=== PATIENT | male | born 1985 | race Caucasian/White ===

== ENCOUNTER → 2021-04-18 09:02 | Outpatient (REF) | payer OTHER, SELFPAY | LOC: HO.SL 09:02 | PROVIDERS: PCP Physician Assistant; Visit Provider Physician Assistant | DX: G47.33 Obstructive sleep apnea (adult) (pediatric) (principal) | CPT/HCPCS: 95806 ==

== ENCOUNTER 2022-10-20 15:21 | Outpatient (AMB) | payer OTHER, SELFPAY ==
--- NOTE | 2022-10-20 15:32 | MHC.PC.OV ---
Vital Signs 10/20/22 15:33 Height 5 ft 11 in Weight 182 lb 8 oz BMI 25.5 BP 106/68 Blood Pressure Location Lt brachial Position Sitting Pulse 62 Pulse Source Pulse Oximeter Pulse Oximetry (%) 98 Oxygen Delivery Method Room Air Intake Visit Reasons: Ongoing back pain/ Left testicle pain Allergies No Known Allergies Allergy (Verified 10/20/22 16:12) Medication List - Last Reconciled 10/20/22 by Sam Nielsen PA-C tadalafil 20 mg PO DAILY 90 days Tobacco use date assessed: 10/20/22 HPI Ongoing back pain/ Left testicle pain HPI Details Patient is a 37-year-old male here today for problem visit. report having lower back pain over the last week. He reports a physically demanding job in [place] often lifting heavy things. He believes he may have pulled a muscle in his lower back. He reports the pain generally stays in his lower back on left-sided though sometimes radiates into his pelvic region. He has been using Advil though does not feel it is helpful. He denies any profound lower extremity weakness, bowel or bladder dysfunction or saddle amnesia. 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 1. Little interest or pleasure in doing things: not at all 2. Feeling down, depressed, or hopeless: not at all 3. Trouble falling or staying asleep, or sleeping too much: not at all 4. Feeling tired or having little energy: not at all 5. Poor appetite or overeating: not at all 6. Feeling bad about yourself - or that you are a failure or have let yourself or your family down: not at all 7. Trouble concentrating on things, such as reading the newspaper or watching television: not at all 8. Moving or speaking so slowly that other people could have noticed. Or the opposite - being so fidgety or restless that you have been moving around a lot more than usual: not at all 9. Thoughts that you would be better off or of hurting yourself in some way: not at all Total score: 0 Depression Screening Interpretation: Negative Source: Developed by Drs. Kirk Hammond, Jazmin Cespedes, Kwasi Shi and colleagues, with an educational alicia from [employer]. Thrive Questionnaire Date Thrive assessed: 11/20/21 AUDIT C Alcohol Use Questionnaire (AUDIT-C) 1. How often do you have a drink containing alcohol?: 2-3 times a week 2. How many drinks containing alcohol do you have on a typical day when you are drinking?: 3 or 4 3. How often do you have six or more drinks on one occasion?: Less than monthly Total Score: 5 DEDE-7 AMB Questionnaire DEDE-7 Date DEDE - 7 assessed: 10/20/22 Feeling nervous, anxious, or on edge: 0 = Not at all Not being able to stop or control worryin = Not at all Worrying too much about different things: 0 = Not at all Trouble relaxin = Not at all Being so restless that it is hard to sit still: 0 = Not at all Becoming easily annoyed or irritable: 0 = Not at all Feeling afraid as if something awful might happen: 0 = Not at all Total DEDE-7 score (0-4 normal; 5-9 mild; 10-14 moderate; 15-21 severe): 0 Source: Developed by Drs. Kirk Hammond, Jazmin Cespedes, Kwasi Shi and colleagues, with an educational alicia from [employer]. DEDE-7 Assessment Billing DEDE-7 Assessment Tool: DEDE-7 Assessment 04729 Review of Systems Const Denies headache(s) Eyes Denies loss of vision ENT Denies vertigo, Denies dizziness, Denies headache(s) and Denies sore throat Card Denies chest pain, Denies leg edema and Denies lightheadedness Resp Denies cough, Denies hemoptysis and Denies wheezing GI Denies abdominal pain, Denies melena, Denies constipation, Denies diarrhea and Denies vomiting Denies dysuria, Denies urinary frequency and Denies urinary urgency Musc Denies arthralgias, Denies joint swelling, Denies numbness and Denies tingling Neuro Denies Abnormal speech present, Denies behavioral changes, Denies vertigo, Denies dizziness, Denies headache(s), Denies loss of vision, Denies memory loss, Denies numbness and Denies tingling Psych Denies anxiety, Denies behavioral changes, Denies depression, Denies memory loss and Denies panic attacks Greg/Lymph Denies easy bleeding and Denies easy bruising Aller/Immun Denies wheezing Physical exam (Primary Care) Vital Signs: Last Vital Signs Pulse 62 10/20/22 15:33 BP 106/68 10/20/22 15:33 Pulse Ox 98 10/20/22 15:33 Oxygen Delivery Method Room Air 10/20/22 15:33 BMI result Body Mass Index 25.5 Tobacco/Smoking Status: Tobacco use Status Tobacco use date assessed 10/20/22 10/20/22 15:33 Patient Tobacco Use Status Never used Tobacco 10/20/22 15:33 Tobacco use type Cigarette 10/20/22 15:33 e-Cigarette/Vaping Use Never Used 10/20/22 15:33 PHQ-9: PHQ-9 Score PHQ-9: Total score 0 10/20/22 16:16 Depression Screening Interpretation: Negative Thrive Assessment: Date of Thrive Assessment Date Thrive assessed 11/20/21 10/20/22 15:33 Const General: healthy appearing, no acute distress, alert and awake Nutritional Appearance: well nourished Orientation/consciousness: oriented to person, oriented to place and oriented to time HENMT Ears: TM's normal bilaterally General nose exam: Normal nasal mucous membranes and turbinates present Eyes Conjunctivae: conjunctivae normal Sclerae: sclerae normal Pupils: Equal, round and reactive pupils present Neck Neck: Yes no lymphadenopathy and Yes no JVD Thyroid: Thyroid normal Carotids: no bruits Resp Effort & Inspection: normal respiratory effort and not tachypneic Auscultation: no crackles, no rales, no rhonchi and no wheezes Cardio Rate: regular rate Rhythm: regular rhythm Heart sounds: no murmurs and normal S1 and S2 GI Palpation (GI): Soft to palpation, nontender, no hepatomegaly and no splenomegaly Auscultation: normal bowel sounds Back/Spine/Pelvis Other: POSITIVE PAIN WITH STRAIGHT LEG RAISE ON LEFT SIDE PATIENT AMBULATING WITH AN ANTALGIC GAIT Skin General skin exam: no rashes or lesions noted and dry skin Neuro General: oriented to person, oriented to place and oriented to time Cranial nerves: Yes Equal, round and reactive pupils present Speech: No Abnormal speech present Gait exam (Neuro): Normal gait present Motor exam (neuro): no tremor noted Extrem Right upper extremity: full ROM Left upper extremity: full ROM Right lower extremity: full ROM; no edema Left lower extremity: full ROM; no edema Psych Mental Status: mental status grossly normal Speech and movement: Normal speech and movement present Affect: normal affect Attitude: cooperative Thought process: Normal thought process present Assessment and Plan Assessment & Plan (1) Lower back pain: Code(s): M54.50 - Low back pain, unspecified Qualifiers: Back pain laterality: bilateral Chronicity: acute Sciatica presence: without sciatica Qualified Code(s): M54.50 - Low back pain, unspecified Plan: Patient's signs and symptoms most consistent with sciatic on left side verses lumbosacral sprain. Advised to rest lower back, will get x-ray to evaluate for any disc height loss versus arthritis. Will supply patient with prednisone taper for inflammation around the sciatic nerve. Advised on formal physical therapy and patient agrees and will try. Orders: Orders XR lumbar spine 2-3V Today M54.50 - Low back pain, unspecified PT Evaluation and Treatment 10/20/22 M51.9 - Unspecified thoracic, thoracolumbar and lumbosacral intervertebral disc disorder, M54.50 - Low back pain, unspecified Comprehensive [place]. Panel Fast 10/20/22 Z13.1 - Encounter for screening for diabetes mellitus Medications: New prednisone 10 mg PO DAILY 7 days 15 tabs 0RF M54.50 - Low back pain, unspecified Refilled tadalafil administer approximately 30min before sexual activity; do not use more than 1 dose per 24hrs 20 mg PO DAILY 90 days 20 tabs 0RF sexual activity N52.8 - Other male erectile dysfunction Coding Level of Care Code Est Pt Level 3 (99719) Diagnoses Lower back pain M54.50 Back pain laterality: bilateral Chronicity: acute Sciatica presence: without sciatica Additional Codes DEDE-7 Assessment Billing - DEDE-7 Assessment Tool: DEDE-7 Assessment 35014 ([id number])
[2022-10-20 15:33] VITALS: BP 106/68; PULSE 62; O2SAT 98; BMI 25.5
== END 2022-10-20 16:27 | disposition home or self-care (01) ==
PROVIDERS: PCP Physician Assistant; Visit Provider Physician Assistant
DX: M54.50 Low back pain, unspecified (principal)
CPT/HCPCS: 99213

== ENCOUNTER 2022-10-21 07:15 | Outpatient (REF) | payer OTHER, SELFPAY ==
--- NOTE | ~2022-10-21 | XR_ITS ---
EXAMINATION: XR LUMBOSACRAL SPINE CLINICAL INFORMATION: Low back pain COMPARISON: None available. TECHNIQUE: Three views of the lumbosacral spine. FINDINGS: The vertebral bodies and posterior elements are normal. The disc spaces are preserved and the vertebral alignment is normal. The paraspinal soft tissues are normal. XR/XR lumbar spine 2-3V IMPRESSION: Unremarkable examination.
== END 2022-10-21 07:16 | disposition home or self-care (01) ==
LOC: HO.XRAY 07:15
PROVIDERS: PCP Physician Assistant; Visit Provider Physician Assistant
DX: M54.50 Low back pain, unspecified (principal)
CPT/HCPCS: 72100

== ENCOUNTER 2022-11-24 07:53 | Outpatient (AMB) | payer OTHER, SELFPAY ==
[2022-11-24 08:01] VITALS: BP 116/68; PULSE 78; O2SAT 98; BMI 25.9
--- NOTE | 2022-11-24 08:01 | MHC.PC.OV ---
Vital Signs 11/24/22 08:01 Height 5 ft 11 in Weight 186 lb BMI 25.9 BP 116/68 Blood Pressure Location Lt brachial Position Sitting Pulse 78 Pulse Source Pulse Oximeter Pulse Oximetry (%) 98 Oxygen Delivery Method Room Air Intake Visit Reasons: PE Allergies No Known Allergies Allergy (Verified 11/24/22 08:10) Medication List - Last Reconciled 11/24/22 by Sam Nielsen PA-C tadalafil 20 mg PO DAILY 90 days Tobacco use date assessed: 10/20/22 Dental Screening Dental Screen Date: 11/24/22 Did you have a dental visit in the last 12 months?: No Did you have a dental problem in the last 6 months where you did not have access to dental care?: No Was dental information given to patient?: Patient has dentist HPI PE HPI Details Patient is a 37 year male here today for annual physical. Patient has a past medical history significant for mild obstructive sleep apnea, erectile dysfunction. Concern--> recently had a lower back issue to which has gotten better though seems to be intermittent in pain severity. 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 He was referred to physical therapy though is cancel the appointment as he was feeling better. .. Sleeping issue: Has tried hydroxyzine in the past though had morning lethargy. He is willing to try another .Sleeping medication. .. Erectile dysfunction: He does use today Elavil on a p.r.n. basis with good effect. Vaccines: UTD COVID Vaccine , Needs Tdap, considering flu vaccine [facility] Medical History (Updated 11/24/22 @ 08:43 by Sam Nielsen PA-C) Right malleolar fracture OJ (obstructive sleep apnea) Surgical History History of removal of cyst History of foot surgery History of appendectomy Family History Father Alive and well Mother Alive and well Son Alive and well Daughter Alive and well Social History (Updated 11/24/22 @ 08:18 by Sam Nielsen PA-C) Housing: House Alcohol intake: current Alcohol intake frequency: a few times a month Alcohol type: beer Patient Tobacco Use Status: Never used Tobacco Tobacco use type: Cigarette e-Cigarette/Vaping Use: Never Used Second Hand Smoke Exposure: No Substance Use Type: Marijuana Current occupational status: employed 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 1. Little interest or pleasure in doing things: not at all 2. Feeling down, depressed, or hopeless: not at all 3. Trouble falling or staying asleep, or sleeping too much: not at all 4. Feeling tired or having little energy: not at all 5. Poor appetite or overeating: not at all 6. Feeling bad about yourself - or that you are a failure or have let yourself or your family down: not at all 7. Trouble concentrating on things, such as reading the newspaper or watching television: not at all 8. Moving or speaking so slowly that other people could have noticed. Or the opposite - being so fidgety or restless that you have been moving around a lot more than usual: not at all 9. Thoughts that you would be better off or of hurting yourself in some way: not at all Total score: 0 Depression Screening Interpretation: Negative Source: Developed by Drs. Kirk Hammond, Jazmin Cespedes, Kwasi Shi and colleagues, with an educational alicia from [employer]. Thrive Questionnaire Date Thrive assessed: 11/24/22 I am a: Patient What is your living situation today?: I have a steady place to live Within the past 12 months, did the food you bought not last and you didn't have the money to get more?: Never true Within the past 12 months, did you worry whether your food would run out before you got money to buy more?: Never true Do you have trouble paying for medicines?: No Do you have trouble getting transportation to medical appointments?: No Do you have trouble paying your heating and electricity bill?: No Do you have trouble taking care of your child, family member or friend?: No Do you have trouble with day-to-day activities such as bathing, preparing meals, shopping, managing finances, etc.?: No Are you currently unemployed and looking for a job?: No Are you interested in more education?: No Currently or been in a relationship where the following occur: no concerns reported AUDIT C Alcohol Use Questionnaire (AUDIT-C) 1. How often do you have a drink containing alcohol?: 2-3 times a week 2. How many drinks containing alcohol do you have on a typical day when you are drinking?: 3 or 4 3. How often do you have six or more drinks on one occasion?: Less than monthly Total Score: 5 DEDE-7 AMB Questionnaire DEDE-7 Date DEDE - 7 assessed: 10/20/22 Source: Developed by Drs. Kirk Hammond, Jazmin Cespedes, Kwasi Shi and colleagues, with an educational alicia from [employer]. Review of Systems Const Denies body aches, Denies chills, Denies excessive sweating, Denies fatigue, Denies fever(s) and Denies headache(s) Eyes Denies blurry vision ENT Denies dysphagia, Denies vertigo, Denies dizziness, Denies headache(s), Denies hearing loss and Denies tinnitus Card Denies chest pain, Denies chest pain with activity, Denies syncope, Denies irregular heart rhythm and Denies dyspnea Resp Denies chest congestion, Denies cough, Denies hemoptysis, Denies dyspnea and Denies wheezing GI Denies abdominal pain, Denies melena, Denies hematochezia, Denies coffee ground emesis, Denies dysphagia, Denies diarrhea, Denies nausea and Denies vomiting Denies difficulty urinating, Denies dysuria, Denies urinary frequency, Denies urinary hesitancy and Denies urinary urgency Musc Denies arthralgias, Denies limited range of motion, Denies muscle cramps and Denies muscle weakness Skin/Breast Denies rash and Denies skin ulcer Neuro Denies Abnormal speech present, Denies confusion, Denies vertigo, Denies dizziness, Denies syncope, Denies headache(s), Denies memory loss and Denies seizure-like activity Psych Denies anxiety, Denies confusion, Denies depression, Denies memory loss, Denies panic attacks and Denies paranoia Endo Denies excessive sweating, Denies fatigue, Denies flushing, Denies polydipsia and Denies polyuria Aller/Immun Denies wheezing Physical exam (Primary Care) Vital Signs: Last Vital Signs Pulse 78 11/24/22 08:01 BP 116/68 11/24/22 08:01 Pulse Ox 98 11/24/22 08:01 Oxygen Delivery Method Room Air 11/24/22 08:01 BMI result Body Mass Index 25.9 Tobacco/Smoking Status: Tobacco use Status Tobacco use date assessed 10/20/22 11/24/22 08:06 Patient Tobacco Use Status Never used Tobacco 11/24/22 08:06 Tobacco use type Cigarette 11/24/22 08:06 e-Cigarette/Vaping Use Never Used 11/24/22 08:06 PHQ-9: PHQ-9 Score PHQ-9: Total score 0 11/24/22 08:06 Depression Screening Interpretation: Negative Thrive Assessment: Date of Thrive Assessment Date Thrive assessed 11/24/22 11/24/22 08:06 Currently or been in a relationship where the following occur: no concerns reported Const General: cooperative, comfortable, no acute distress, alert and awake; No confusion Orientation/consciousness: oriented to person, oriented to place, patient oriented x3 and No confusion HENMT Head: Yes normocephalic Ears: external ears normal and TM's normal bilaterally Face and sinus: No sinus tenderness Mouth: Normal oral and palatal mucosa present and tongue normal Teeth and gingiva: dentition normal and gingiva normal Throat: Yes posterior oropharynx normal, Yes tonsils normal and Yes uvula midline Eyes Conjunctivae: conjunctivae normal Sclerae: sclerae normal Pupils: Equal, round and reactive pupils present EOM: EOMs intact bilaterally Direct Ophthalmoscopy: No no photophobia Neck Neck: Yes no lymphadenopathy, No tender and Yes no JVD Thyroid: Thyroid normal Carotids: no bruits Chest Chest palpation & inspection: no tenderness Resp Effort & Inspection: normal respiratory effort, no audible wheezes, not labored and no stridor Auscultation: no crackles, no rales, no rhonchi and no wheezes Cardio Jugular venous distension: no JVD Rate: regular rate, not bradycardic and not tachycardic Rhythm: regular rhythm Bruits: no carotid bruits Peripheral pulses: Peripheral pulses 2+ throughout GI Inspection: Yes normal to inspection, No abdominal wall ecchymosis and No visible herniation Palpation (GI): Soft to palpation, nontender, no guarding, not rigid and No hepatosplenomegaly present Auscultation: normoactive bowel sounds General: Yes no CVA tenderness Back/Spine/Pelvis Back: no CVA tenderness and No back tenderness Cervical Spine: cervical ROM normal Thoracic/Lumbar Spine: thoracic and lumbar spine normal to inspection, straight leg raise negative bilaterally, No thoraco-lumbar ROM limited and No lumbar spinal tenderness Skin Lesions: no lesions Rashes: no rashes Wounds: no wounds Neuro General: oriented to person, oriented to place, patient oriented x3, CN's II-XI intact bilaterally and No confusion Cranial nerves: Yes Equal, round and reactive pupils present and Yes Normal accommodation reflex present Cognition (Neuro): normal cognition Speech: No Abnormal speech present Gait exam (Neuro): Normal gait present Motor exam (neuro): 5/5 motor strength present throughout Extrem Right upper extremity: full ROM; no cyanosis Left upper extremity: full ROM; no cyanosis Right lower extremity: no edema Left lower extremity: no edema Psych Appearance: grossly normal Mental Status: mental status grossly normal Affect: normal affect Attitude: cooperative Thought process: Normal thought process present Assessment and Plan Assessment & Plan (1) Annual physical exam: Code(s): Z00.00 - Encounter for general adult medical examination without abnormal findings (2) Erectile dysfunction: Code(s): N52.9 - Male erectile dysfunction, unspecified Qualifiers: Erectile dysfunction type: due to other cause Qualified Code(s): N52.8 - Other male erectile dysfunction Plan: Uses today Elavil on a p.r.n. basis with good effect. (3) Screening for diabetes mellitus (DM): Code(s): Z13.1 - Encounter for screening for diabetes mellitus (4) Insomnia: Code(s): G47.00 - Insomnia, unspecified Qualifiers: Insomnia type: primary Qualified Code(s): F51.01 - Primary insomnia Plan: Continues to have trouble getting and staying asleep. Was sent for sleep study though did not have any severe obstructive sleep apnea. Did have mild apnea which recommendations made to sleep in more upright position. Medications: New doxepin 6 mg PO BEDTIME 15 tabs 1RF 15 days F51.01 - Primary insomnia Refilled tadalafil administer approximately 30min before sexual activity; do not use more than 1 dose per 24hrs 20 mg PO DAILY 20 tabs 0RF sexual activity 90 days N52.8 - Other male erectile dysfunction Coding Level of Care Code Est Pt Prev Care 18-39y([id number]) Diagnoses Annual physical exam Z00.00 Other male erectile dysfunction N52.8 Erectile dysfunction type: due to other cause Screening for diabetes mellitus (DM) Z13.1 Primary insomnia F51.01 Insomnia type: primary
== END 2022-11-24 08:32 | disposition home or self-care (01) ==
PROVIDERS: PCP Physician Assistant; Visit Provider Physician Assistant
DX: Z00.00 Encounter for general adult medical examination without abnormal findings (principal); N52.8 Other male erectile dysfunction; Z13.1 Encounter for screening for diabetes mellitus; F51.01 Primary insomnia
CPT/HCPCS: 99395

== ENCOUNTER 2023-06-08 13:52 | Outpatient (AMB) | payer OTHER, SELFPAY ==
--- NOTE | 2023-06-08 13:53 | A.OFFPC_ITS ---
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 Accompanied by: Self / Same As Patient Allergies No Known Allergies Allergy (Verified 06/08/23 14:03) Medication List - Last Reconciled 06/08/23 by Sam Nielsen PA-C tadalafil 20 mg PO DAILY 90 days trazodone 25 mg (1/2 x 50 mg) PO DAILY 30 days Tobacco use date assessed: 06/08/23 Dental Screening Dental Screen Date: 06/08/23 Did you have a dental visit in the last 12 months?: No Did you have a dental problem in the last 6 months where you did not have access to dental care?: No Was dental information given to patient?: Patient has dentist HPI Possible sinus infection HPI Details Patient is a 37-year-old male here today for sick visit. He has been suffering with sinus pain and nasal congestion over the last 2 weeks. He does report seeing urgent care and was placed on amoxicillin and felt a bit better for few days though symptoms of cough, malaise have returned. He has been using [id number] cough cold medications though have not effective. [facility] Medical History Right malleolar fracture OJ (obstructive sleep apnea) Surgical History History of removal of cyst History of foot surgery History of appendectomy Family History Father Alive and well Mother Alive and well Son Alive and well Daughter Alive and well Social History Housing: House Alcohol intake: current Alcohol intake frequency: a few times a month Alcohol type: beer Patient Tobacco Use Status: Never used Tobacco Tobacco use type: Cigarette e-Cigarette/Vaping Use: Never Used Second Hand Smoke Exposure: No Substance Use Type: Marijuana Current occupational status: employed 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 1. Little interest or pleasure in doing things: not at all 2. Feeling down, depressed, or hopeless: not at all 3. Trouble falling or staying asleep, or sleeping too much: not at all 4. Feeling tired or having little energy: not at all 5. Poor appetite or overeating: not at all 6. Feeling bad about yourself - or that you are a failure or have let yourself or your family down: not at all 7. Trouble concentrating on things, such as reading the newspaper or watching television: not at all 8. Moving or speaking so slowly that other people could have noticed. Or the opposite - being so fidgety or restless that you have been moving around a lot more than usual: not at all 9. Thoughts that you would be better off or of hurting yourself in some way: not at all Total score: 0 Depression Screening Interpretation: Negative Depression Screening Done: Yes 69641 - PHQ-9 Billing: Yes Source: Developed by Drs. Kirk Hammond, Jazmin Cespedes, Kwasi Shi and colleagues, with an educational alicia from [employer] Thrive Questionnaire Date Thrive assessed: 06/08/23 I am a: Patient What is your living situation today?: I have a steady place to live Within the past 12 months, did the food you bought not last and you didn't have the money to get more?: Never true Within the past 12 months, did you worry whether your food would run out before you got money to buy more?: Never true Do you have trouble paying for medicines?: No Do you have trouble getting transportation to medical appointments?: No Do you have trouble paying your heating and electricity bill?: No Do you have trouble taking care of your child, family member or friend?: No Do you have trouble with day-to-day activities such as bathing, preparing meals, shopping, managing finances, etc.?: No Are you currently unemployed and looking for a job?: No Please select the resources that you would like help with: None Currently or been in a relationship where the following occur: no concerns reported THRIVE Score: 0 AUDIT C Alcohol Use Questionnaire (AUDIT-C) 1. How often do you have a drink containing alcohol?: 2-3 times a week 2. How many drinks containing alcohol do you have on a typical day when you are drinking?: 3 or 4 3. How often do you have six or more drinks on one occasion?: Less than monthly Total Score: 5 DEDE-7 AMB Questionnaire DEDE-7 Date DEDE - 7 assessed: 06/08/23 Feeling nervous, anxious, or on edge: 0 = Not at all Not being able to stop or control worryin = Not at all Worrying too much about different things: 0 = Not at all Trouble relaxin = Not at all Being so restless that it is hard to sit still: 0 = Not at all Becoming easily annoyed or irritable: 0 = Not at all Feeling afraid as if something awful might happen: 0 = Not at all Total DEDE-7 score (0-4 normal; 5-9 mild; 10-14 moderate; 15-21 severe): 0 Source: Developed by Drs. Kirk Hammond, Jazmin Cespedes, Kwasi Shi and colleagues, with an educational alicia from [employer] DEDE-7 Assessment Billing DEDE-7 Assessment Tool: DEDE-7 Assessment 78181 Review of Systems Const Reports headache(s) Eyes Denies loss of vision ENT Denies vertigo, Denies dizziness, Reports headache(s), Reports nasal congestion, Reports sinus pain and Denies sore throat Card Denies chest pain, Denies leg edema and Denies lightheadedness Resp Reports cough, Denies hemoptysis and Denies wheezing GI Denies abdominal pain, Denies melena, Denies constipation, Denies diarrhea and Denies vomiting Denies dysuria, Denies urinary frequency and Denies urinary urgency Musc Denies arthralgias, Denies joint swelling, Denies numbness and Denies tingling Neuro Denies Abnormal speech present, Denies behavioral changes, Denies vertigo, Denies dizziness, Reports headache(s), Denies loss of vision, Denies memory loss, Denies numbness and Denies tingling Psych Denies anxiety, Denies behavioral changes, Denies depression, Denies memory loss and Denies panic attacks Greg/Lymph Denies easy bleeding and Denies easy bruising Aller/Immun Denies wheezing Physical exam (Primary Care) Vital Signs: Last Vital Signs Pulse 69 06/08/23 13:56 Resp 16 06/08/23 13:56 BP 110/60 06/08/23 13:56 Pulse Ox 97 06/08/23 13:56 Oxygen Delivery Method Room Air 06/08/23 13:56 BMI result Body Mass Index 25.9 Tobacco/Smoking Status: Tobacco use Status Tobacco use date assessed 06/08/23 06/08/23 14:00 Patient Tobacco Use Status Never used Tobacco 06/08/23 13:54 Tobacco use type Cigarette 06/08/23 13:54 e-Cigarette/Vaping Use Never Used 06/08/23 13:54 PHQ-9: PHQ-9 Score PHQ-9: Total score 0 06/08/23 14:00 Depression Screening Interpretation: Negative Thrive Assessment: Date of Thrive Assessment Date Thrive assessed 06/08/23 06/08/23 14:00 Currently or been in a relationship where the following occur: no concerns reported Const General: healthy appearing, no acute distress, alert and awake Nutritional Appearance: well nourished Orientation/consciousness: oriented to person, oriented to place and oriented to time HENMT Ears: TM's normal bilaterally General nose exam: Normal nasal mucous membranes and turbinates present Eyes Conjunctivae: conjunctivae normal Sclerae: sclerae normal Pupils: Equal, round and reactive pupils present Neck Neck: Yes no lymphadenopathy and Yes no JVD Thyroid: Thyroid normal Carotids: no bruits Resp Effort & Inspection: normal respiratory effort and not tachypneic Auscultation: no crackles, no rales, no rhonchi and no wheezes Cardio Rate: regular rate Rhythm: regular rhythm Heart sounds: no murmurs and normal S1 and S2 GI Palpation (GI): Soft to palpation, nontender, no hepatomegaly and no splenomegaly Auscultation: normal bowel sounds Skin General skin exam: no rashes or lesions noted and dry skin Neuro General: oriented to person, oriented to place and oriented to time Cranial nerves: Yes Equal, round and reactive pupils present Speech: No Abnormal speech present Gait exam (Neuro): Normal gait present Motor exam (neuro): no tremor noted Extrem Right upper extremity: full ROM Left upper extremity: full ROM Right lower extremity: full ROM; no edema Left lower extremity: full ROM; no edema Psych Mental Status: mental status grossly normal Speech and movement: Normal speech and movement present Affect: normal affect Attitude: cooperative Thought process: Normal thought process present Assessment and Plan Assessment & Plan (1) URI (upper respiratory infection): Code(s): J06.9 - Acute upper respiratory infection, unspecified Qualifiers: URI type: unspecified viral URI Qualified Code(s): J06.9 - Acute upper respiratory infection, unspecified Plan: Patients signs symptoms most consistent with an upper respiratory illness likely viral. Has finished a course of amoxicillin when and felt better temporarily though symptoms has returned. Will send for x-ray and blood work. Will supply patient with doxycycline and prednisone Orders: Orders SARS-CoV2/FLU/RSV Today J06.9 - Acute upper respiratory infection, unspecified Complete Blood Count no Diff Today J06.9 - Acute upper respiratory infection, unspecified Basic Metabolic Panel Today J06.9 - Acute upper respiratory infection, unspecified XR chest 2V Today J06.9 - Acute upper respiratory infection, unspecified Medications: New doxycycline monohydrate 150 mg PO BID 7 days 14 caps 0RF J06.9 - Acute upper respiratory infection, unspecified prednisone 20 mg PO DAILY 5 days 5 tabs 0RF J06.9 - Acute upper respiratory infection, unspecified Coding Level of Care Code Est Pt Level 3 (53608) Diagnoses Viral upper respiratory tract infection J06.9 URI type: unspecified viral URI Additional Codes DEDE-7 Assessment Billing - DEDE-7 Assessment Tool: DEDE-7 Assessment [id number] ([id number])
[2023-06-08 13:56] VITALS: BP 110/60; PULSE 69; RESP 16; O2SAT 97; BMI 25.9
== END 2023-06-08 14:19 | disposition home or self-care (01) ==
PROVIDERS: PCP Physician Assistant; Visit Provider Physician Assistant
DX: J06.9 Acute upper respiratory infection, unspecified (principal)
CPT/HCPCS: 99213

== ENCOUNTER 2023-06-08 14:21 | Outpatient (REF) | payer OTHER, SELFPAY ==
--- NOTE | ~2023-06-08 | XR_ITS ---
EXAMINATION: XR CHEST CLINICAL INFORMATION: Acute upper respiratory infection COMPARISON: 12/08/2016 TECHNIQUE: 2 views of the chest were obtained. FINDINGS: No significant abnormality is noted involving the heart, lungs, mediastinum, bony thorax or soft tissues. XR/XR chest 2V IMPRESSION: Unremarkable examination with no interval change.
[2023-06-08 15:07] LABS: Hematocrit 41.5 % (42.0-52.0); Mean Corpuscular HGB Conc 33.7 g/dl (31.0-36.0); Mean Corpuscular Hemoglobin 28.9 pg (27.0-33.0); Mean Corpuscular Volume 85.6 fL (80.0-98.0); Mean Platelet Volume 8.9 fL (9.4-12.4); Platelet Count 334 X10*3/uL (160-400); Red Blood Count 4.85 X10*6/uL (4.60-5.80); Red Cell Distribution Width 12.9 % (11.0-16.0); White Blood Count 11.5 X10*3/uL (4.8-10.8)
[2023-06-08 15:28] LABS: Alanine Aminotransferase 16 U/L (0-40); Albumin Level 4.1 g/dL (3.5-5.0); Alkaline Phosphatase 67 U/L (39-117); Anion Gap 9 (12-20); Aspartate Amino Transferase 17 U/L (5-37); Bilirubin Total 0.2 mg/dL (0.0-1.0); Blood Urea Nitrogen 8 mg/dL (9-16); Calcium 9.5 mg/dL (8.4-10.2); Carbon Dioxide 27 mmol/L (22-29); Chloride 108 mmol/L (96-108); Estimated Glomerular Filt Rate > 60; Glucose Fasting 89 mg/dL (60-99); Glucose Random 90 mg/dL (60-115); Potassium 4.2 mmol/L (3.3-5.1); Sodium 140 mmol/L (135-145)
== END 2023-06-08 14:22 | disposition home or self-care (01) ==
LOC: HO.XRAY 14:21
PROVIDERS: PCP Physician Assistant; Visit Provider Physician Assistant
DX: Z13.1 Encounter for screening for diabetes mellitus (principal); J06.9 Acute upper respiratory infection, unspecified
CPT/HCPCS: 36415; 71046; 80048; 80053; 85027

== ENCOUNTER 2023-06-08 16:23 | Outpatient (REF) | payer OTHER, SELFPAY ==
[2023-06-08 17:46] LABS: Influenza A PCR NEGATIVE (Negative); Influenza B PCR NEGATIVE (Negative); Resp Syncy Virus RNA Qual PCR NEGATIVE (Negative); SARS COV2 PCR INHOUSE NEGATIVE (Negative)
== END 2023-06-08 16:24 | disposition home or self-care (01) ==
LOC: HO.LNP 16:23
PROVIDERS: Visit Provider Physician Assistant
DX: Z11.52 Encounter for screening for COVID-19 (principal); J06.9 Acute upper respiratory infection, unspecified
CPT/HCPCS: 0241U

== ENCOUNTER 2023-10-01 09:14 | Outpatient (AMB) | payer BC, SELFPAY ==
--- NOTE | 2023-10-01 09:15 | MHC.PC.OV ---
Intake Visit Reasons: ?Sinus infection Director Labor Standards Required: No Information Interpreted: non-clinical & clinical [place] Carpenter: Not Required per policy Accompanied by: Self / Same As Patient Allergies No Known Allergies Allergy (Verified 10/01/23 09:15) Tobacco use date assessed: 06/08/23 Dental Screening Dental Screen Date: 06/08/23 HPI ?Sinus infection HPI Details Patient is a 38-year-old male being evaluated today via telephone. He reports over the last 3 days feeling sinus/nasal congestion, frontal headache, myalgias and fatigue. Did take COVID testing was negative. He reports feeling like this when he has a sinus infection. Otherwise denies any sick contacts. [facility] Medical History Right malleolar fracture OJ (obstructive sleep apnea) Surgical History History of removal of cyst History of foot surgery History of appendectomy Family History Father Alive and well Mother Alive and well Son Alive and well Daughter Alive and well Social History Housing: House Alcohol intake: current Alcohol intake frequency: a few times a month Alcohol type: beer Patient Tobacco Use Status: Never used Tobacco Tobacco use type: Cigarette e-Cigarette/Vaping Use: Never Used Second Hand Smoke Exposure: No Substance Use Type: Marijuana Current occupational status: employed 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 Kirk Hammond, Jazmin Cespedes, Kwasi Shi and colleagues, with an educational alicia from [employer]. Review of Systems Const Reports body aches, Reports chills, Reports fatigue and Reports headache(s) Eyes Denies loss of vision ENT Denies vertigo, Denies dizziness, Reports headache(s), Reports nose pain, Reports sinus pain and Denies sore throat Card Denies chest pain, Denies leg edema and Denies lightheadedness Resp Denies cough, Denies hemoptysis and Denies wheezing GI Denies abdominal pain, Denies melena, Denies constipation, Denies diarrhea and Denies vomiting Denies dysuria, Denies urinary frequency and Denies urinary urgency Musc Denies arthralgias, Denies joint swelling, Denies numbness and Denies tingling Neuro Denies behavioral changes, Denies vertigo, Denies dizziness, Reports headache(s), Denies loss of vision, Denies memory loss, Denies numbness and Denies tingling Psych Denies anxiety, Denies behavioral changes, Denies depression, Denies memory loss and Denies panic attacks Endo Reports fatigue Greg/Lymph Denies easy bleeding and Denies easy bruising Aller/Immun Denies wheezing Physical exam (Primary Care) Tobacco/Smoking Status: Tobacco use Status Tobacco use date assessed 06/08/23 10/01/23 09:16 Patient Tobacco Use Status Never used Tobacco 10/01/23 09:16 Tobacco use type Cigarette 10/01/23 09:16 e-Cigarette/Vaping Use Never Used 10/01/23 09:16 Thrive Assessment: Date of Thrive Assessment Date Thrive assessed 06/08/23 10/01/23 09:16 Telehealth Telehealth Telehealth Platform: Telephone Location of provider rendering services: practice address Location of patient: address on file Patient Identification confirmed using: Name, : Yes Telehealth method: voice only Patient verbally consented to treatment: Yes Patient verbally consented to billing insurance company: Yes Patient informed of any privacy concerns related to visit: Yes Minutes spent on Phone/Video with Pt.: 11 Assessment and Plan Assessment & Plan (1) Sinus infection: Code(s): J32.9 - Chronic sinusitis, unspecified Qualifiers: Sinusitis location: frontal Chronicity: acute Recurrence: non-recurrent Qualified Code(s): J01.10 - Acute frontal sinusitis, unspecified Plan: Patient's signs symptoms most consistent with a frontal sinus infection. Will supply patient with antibiotic prophylactic against bacterial infection. Advised on conservative management such as increasing fluids, use of Tylenol rest. Medications: New amoxicillin-pot clavulanate 875-125 mg 1 tab PO BID 7 days 14 tabs 0RF J01.10 - Acute frontal sinusitis, unspecified Coding Level of Care Code Tele Est Pt Level 3 (59592) Diagnoses Acute non-recurrent frontal sinusitis J01.10 Sinusitis location: frontal Chronicity: acute Recurrence: non-recurrent
== END 2023-10-01 12:52 | disposition home or self-care (01) ==
PROVIDERS: PCP Physician Assistant; Visit Provider Physician Assistant
DX: J01.10 Acute frontal sinusitis, unspecified (principal)
CPT/HCPCS: 99442

== ENCOUNTER 2024-04-18 14:22 | Outpatient (AMB) | payer BC, SELFPAY ==
[2024-04-18 14:48] VITALS: BP 116/76; PULSE 67; TEMP 36.2; O2SAT 99; BMI 26.1
--- NOTE | 2024-04-18 14:48 | MHC.PC.OV ---
Vital Signs 04/18/24 14:48 Height 5 ft 11 in Weight 187 lb 4 oz BMI 26.1 BP 116/76 Blood Pressure Location Lt brachial Position Sitting Pulse 67 Pulse Source Pulse Oximeter Temp 97.1 F Temp Source Temporal Artery Scan Pulse Oximetry (%) 99 Oxygen Delivery Method Room Air Intake Visit Reasons: R/S from 03/10/24- Supervisor Home Economics Required: No Accompanied by: Self / Same As Patient Allergies No Known Allergies Allergy (Verified 04/18/24 15:23) Medication List - Last Reconciled 04/18/24 by Sam Nielsen PA-C cetirizine 10 mg PO DAILY fluticasone propionate 50 mcg/actuation 2 sprays intranasal DAILY tadalafil 20 mg PO DAILY 90 days trazodone 25 mg (1/2 x 50 mg) PO DAILY 30 days Tobacco use date assessed: 04/18/24 Dental Screening Dental Screen Date: 04/18/24 Did you have a dental visit in the last 12 months?: Yes Did you have a dental problem in the last 6 months where you did not have access to dental care?: No Was dental information given to patient?: Patient has dentist HPI R/S from 03/10/24- HPI Details Patient is a 38 year male here today for annual physical. Patient has a past medical history significant for mild obstructive sleep apnea, erectile dysfunction. Concern--> reports having GERD symptoms has been chronic issue over the last few years. Uses Rolaids and Tums on a daily basis. He does report feeling some of his solid foods get stuck in his esophagus at times. PLAN: Will modify diet and start pantoprazole to help with reducing acid production. .. Sleeping issue: He does have trazodone available to him and reports he has been sleeping much better recently. .. Erectile dysfunction: He does use today Elavil on a p.r.n. basis with good effect. Vaccines: UTD COVID Vaccine , Needs Tdap, PFSH Medical History Right malleolar fracture OJ (obstructive sleep apnea) Surgical History History of removal of cyst History of foot surgery History of appendectomy Family History Father Alive and well Mother Alive and well Son Alive and well Daughter Alive and well Social History Housing: House Alcohol intake: current Alcohol intake frequency: a few times a month Alcohol type: beer Patient Tobacco Use Status: Never used Tobacco Tobacco use type: Cigarette e-Cigarette/Vaping Use: Never Used Second Hand Smoke Exposure: No Substance Use Type: Marijuana service: No Current occupational status: employed 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 1. Little interest or pleasure in doing things: not at all 2. Feeling down, depressed, or hopeless: not at all 3. Trouble falling or staying asleep, or sleeping too much: not at all 4. Feeling tired or having little energy: not at all 5. Poor appetite or overeating: not at all 6. Feeling bad about yourself - or that you are a failure or have let yourself or your family down: not at all 7. Trouble concentrating on things, such as reading the newspaper or watching television: not at all 8. Moving or speaking so slowly that other people could have noticed. Or the opposite - being so fidgety or restless that you have been moving around a lot more than usual: not at all 9. Thoughts that you would be better off or of hurting yourself in some way: not at all Total score: 0 Depression Screening Interpretation: Negative Depression Screening Done: Yes 85063 - PHQ-9 Billing: Yes Source: Developed by Drs. Kirk Hammond, Jazmin Cespedes, Kwasi Shi and colleagues, with an educational alicia from [employer]. Thrive Questionnaire Date Thrive assessed: 04/18/24 I am a: Patient What is your living situation today?: I have a steady place to live Within the past 12 months, did the food you bought not last and you didn't have the money to get more?: Never true Within the past 12 months, did you worry whether your food would run out before you got money to buy more?: Never true Do you have trouble paying for medicines?: No Do you have trouble getting transportation to medical appointments?: No Do you have trouble paying your heating and electricity bill?: No Do you have trouble taking care of your child, family member or friend?: No Do you have trouble with day-to-day activities such as bathing, preparing meals, shopping, managing finances, etc.?: No Are you currently unemployed and looking for a job?: No Are you interested in more education?: No Please select the resources that you would like help with: None Currently or been in a relationship where the following occur: No concerns reported THRIVE Score: 0 AUDIT C Alcohol Use Questionnaire (AUDIT-C) 1. How often do you have a drink containing alcohol?: 2-3 times a week 2. How many drinks containing alcohol do you have on a typical day when you are drinking?: 3 or 4 3. How often do you have six or more drinks on one occasion?: Less than monthly Total Score: 5 DEDE-7 AMB Questionnaire DEDE-7 Date DEDE - 7 assessed: 04/18/24 Feeling nervous, anxious, or on edge: 0 = Not at all Not being able to stop or control worryin = Not at all Worrying too much about different things: 0 = Not at all Trouble relaxin = Not at all Being so restless that it is hard to sit still: 0 = Not at all Becoming easily annoyed or irritable: 0 = Not at all Feeling afraid as if something awful might happen: 0 = Not at all Total DEDE-7 score (0-4 normal; 5-9 mild; 10-14 moderate; 15-21 severe): 0 Source: Developed by Drs. Kirk Hammond, Jazmin Cespedes, Kwasi Shi and colleagues, with an educational alicia from [employer]. DEDE-7 Assessment Billing DEDE-7 Assessment Tool: DEDE-7 Assessment 22026 Review of Systems Const Denies body aches, Denies chills, Denies excessive sweating, Denies fatigue, Denies fever(s) and Denies headache(s) Eyes Denies blurry vision ENT Denies dysphagia, Denies vertigo, Denies dizziness, Denies headache(s), Denies hearing loss and Denies tinnitus Card Denies chest pain, Denies chest pain with activity, Denies syncope, Denies irregular heart rhythm and Denies dyspnea Resp Denies chest congestion, Denies cough, Denies hemoptysis, Denies dyspnea and Denies wheezing GI Denies abdominal pain, Denies melena, Denies hematochezia, Denies coffee ground emesis, Denies dysphagia, Reports dyspepsia, Reports heartburn, Denies diarrhea, Denies nausea and Denies vomiting Denies difficulty urinating, Denies dysuria, Denies urinary frequency, Denies urinary hesitancy and Denies urinary urgency Musc Denies arthralgias, Denies limited range of motion, Denies muscle cramps and Denies muscle weakness Skin/Breast Denies rash and Denies skin ulcer Neuro Denies Abnormal speech present, Denies confusion, Denies vertigo, Denies dizziness, Denies syncope, Denies headache(s), Denies memory loss and Denies seizure-like activity Psych Denies anxiety, Denies confusion, Denies depression, Denies memory loss, Denies panic attacks and Denies paranoia Endo Denies excessive sweating, Denies fatigue, Denies flushing, Denies polydipsia and Denies polyuria Aller/Immun Denies wheezing Physical exam (Primary Care) Vital Signs: Last Vital Signs Temp 97.1 F 04/18/24 14:48 Pulse 67 04/18/24 14:48 BP 116/76 04/18/24 14:48 Pulse Ox 99 04/18/24 14:48 Oxygen Delivery Method Room Air 04/18/24 14:48 BMI result Body Mass Index 26.1 Tobacco/Smoking Status: Tobacco use Status Tobacco use date assessed 04/18/24 04/18/24 15:03 Patient Tobacco Use Status Never used Tobacco 04/18/24 14:48 Tobacco use type Cigarette 04/18/24 14:48 e-Cigarette/Vaping Use Never Used 04/18/24 14:48 PHQ-9: PHQ-9 Score PHQ-9: Total score 0 04/18/24 15:23 Depression Screening Interpretation: Negative Thrive Assessment: Date of Thrive Assessment Date Thrive assessed 04/18/24 04/18/24 15:03 Currently or been in a relationship where the following occur: No concerns reported Const General: cooperative, comfortable, no acute distress, alert and awake; No confusion Orientation/consciousness: oriented to person, oriented to place, patient oriented x3 and No confusion HENMT Head: Yes normocephalic Ears: external ears normal and TM's normal bilaterally Face and sinus: No sinus tenderness Mouth: Normal oral and palatal mucosa present and tongue normal Teeth and gingiva: dentition normal and gingiva normal Throat: Yes posterior oropharynx normal, Yes tonsils normal and Yes uvula midline Eyes Conjunctivae: conjunctivae normal Sclerae: sclerae normal Pupils: Equal, round and reactive pupils present EOM: EOMs intact bilaterally Direct Ophthalmoscopy: No no photophobia Neck Neck: Yes no lymphadenopathy, No tender and Yes no JVD Thyroid: Thyroid normal Carotids: no bruits Chest Chest palpation & inspection: no tenderness Resp Effort & Inspection: normal respiratory effort, no audible wheezes, not labored and no stridor Auscultation: no crackles, no rales, no rhonchi and no wheezes Cardio Jugular venous distension: no JVD Rate: regular rate, not bradycardic and not tachycardic Rhythm: regular rhythm Bruits: no carotid bruits Peripheral pulses: Peripheral pulses 2+ throughout GI Inspection: Yes normal to inspection, No abdominal wall ecchymosis and No visible herniation Palpation (GI): Soft to palpation, nontender, no guarding, not rigid and No hepatosplenomegaly present Auscultation: normoactive bowel sounds General: Yes no CVA tenderness Back/Spine/Pelvis Back: no CVA tenderness and No back tenderness Cervical Spine: cervical ROM normal Thoracic/Lumbar Spine: thoracic and lumbar spine normal to inspection, straight leg raise negative bilaterally, No thoraco-lumbar ROM limited and No lumbar spinal tenderness Skin Lesions: no lesions Rashes: no rashes Wounds: no wounds Neuro General: oriented to person, oriented to place, patient oriented x3, CN's II-XI intact bilaterally and No confusion Cranial nerves: Yes Equal, round and reactive pupils present and Yes Normal accommodation reflex present Cognition (Neuro): normal cognition Speech: No Abnormal speech present Gait exam (Neuro): Normal gait present Motor exam (neuro): 5/5 motor strength present throughout Extrem Right upper extremity: full ROM; no cyanosis Left upper extremity: full ROM; no cyanosis Right lower extremity: no edema Left lower extremity: no edema Psych Appearance: grossly normal Mental Status: mental status grossly normal Affect: normal affect Attitude: cooperative Thought process: Normal thought process present Coding Level of Care Code Est Pt Prev Care 40-64y(23802) Diagnoses Annual physical exam Z00.00 Gastroesophageal reflux disease without esophagitis K21.9 Esophagitis presence: without esophagitis Additional Codes DEDE-7 Assessment Billing - DEDE-7 Assessment Tool: DEDE-7 Assessment 89201 ([id number]) PHQ-9 - 41329 - PHQ-9 Billing: Yes ([id number]) Assessment & Plan Assessment & Plan (1) Annual physical exam: Code(s): Z00.00 - Encounter for general adult medical examination without abnormal findings Category: Medical Plan: As per HPI (2) GERD (gastroesophageal reflux disease): Code(s): K21.9 - Gastro-esophageal reflux disease without esophagitis Category: Medical Qualifiers: Esophagitis presence: without esophagitis Qualified Code(s): K21.9 - Gastro-esophageal reflux disease without esophagitis Plan: Will start pantoprazole on a p.r.n. basis to help with GERD symptoms. Advised to modify diet on reducing gastric irritant foods. Orders: Orders Complete Blood Count no Diff 04/18/24 Z13.1 - Encounter for screening for diabetes mellitus Comprehensive [place]. Panel Fast 04/18/24 Z13.1 - Encounter for screening for diabetes mellitus Medications: New pantoprazole 40 mg PO DAILY 30 tabs 2RF 30 days K21.9 - Gastro-esophageal reflux disease without esophagitis
== END 2024-04-18 15:34 | disposition home or self-care (01) ==
PROVIDERS: PCP Physician Assistant; Visit Provider Physician Assistant
DX: Z00.00 Encounter for general adult medical examination without abnormal findings (principal); K21.9 Gastro-esophageal reflux disease without esophagitis

== ENCOUNTER → 2024-04-18 14:22 | Outpatient (BNVA) | payer BC, SELFPAY | PROVIDERS: PCP Physician Assistant; Visit Provider Physician Assistant | DX: Z00.00 Encounter for general adult medical examination without abnormal findings (principal); K21.9 Gastro-esophageal reflux disease without esophagitis; N52.9 Male erectile dysfunction, unspecified | CPT/HCPCS: 96127 ==